=== PATIENT | female | born 1955 | race Hispanic/Latino ===

== ENCOUNTER 2025-04-30 11:45 | Inpatient (IN) | payer MEDICARE, OTHER ==
[~2025-04-30] VITALS: Ht 160 cm; Wt 72.6 kg
[~2025-04-30 11:45] MED LIST: AMPICILLIN; BACTRIM DS TAB1 EACH PO; KEFLEX125 MG/5 M PO
[2025-04-30] MEDS ORDERED: BELLADONNA ALK/PHENOBARBITAL 5 ML UDC PO STA (13:02)
[2025-04-30] MEDS ORDERED: LIDOCAINE VISC 2% SOLN 15 ML UDC PO ONE (13:15)
[2025-04-30] MEDS ORDERED: MAGNESIUM/ALUMINUM/SIMETHICONE 30 ML UDC PO ONE (13:15)
[2025-04-30 13:30] LABS: BASOPHILS % 0.7 % (0.0-1.0); EOSINOPHILS % 0.2 % (0.0-6.0); LYMPHOCYTES % 15.1 % (18.0-39.1); MONOCYTES % 5.0 % (4.4-11.3); NEUTROPHILS % 68.3 % (38.7-80.0); RED CELL DISTRIBUTION WIDTH 13.0 % (11.7-14.4)
[2025-04-30] MEDS ORDERED: SODIUM CHLORIDE 0.9% 1000ML 1,000 ML IV SCH (13:45)
[2025-04-30 13:47] LABS: EST GLOMERULAR FILTRATION RATE 93.0 ML/MIN (>=60)
[2025-04-30] MEDS: DONNATAL/LIDOCAINE/MAALOX 30 ML SUSP PO ONE (16:28)
[2025-04-30] MEDS: Morphine 4mg INJECTION 4 MG/ML INJ IV PRN (16:28)
[2025-04-30] MEDS: ONDANSETRON HCL INJ 2MG/ML 2ML 2 MG/ML VIAL IV PRN (16:29)
[2025-04-30 16:39] VITALS: PULSE 102; RESP 16; O2SAT 97
[2025-04-30] MEDS: HYDROCORTISONE SOD SUCCINATE 100 MG VIAL IV ONE (19:26)
[2025-04-30 20:28] LABS: CORONAVIRUS COVID-19 AG NEGATIVE (NEGATIVE)
[2025-04-30] MEDS: LIDOCAINE 4% PATCH TP SCH (20:29)
[2025-04-30 20:36] LABS: OPIATES SCREEN,URINE POSITIVE (NEGATIVE)
[2025-04-30 20:37] LABS: AMPHETAMINES SCREEN,URINE NEGATIVE (NEGATIVE); CANNABINOIDS SCREEN,URINE NEGATIVE (NEGATIVE); COCAINE SCREEN,URINE NEGATIVE (NEGATIVE); METHADONE SCREEN, URINE NEGATIVE (NEGATIVE)
[2025-04-30 20:51] VITALS: PULSE 95; RESP 16; O2SAT 98
[2025-04-30 20:51] LABS: OSMOLALITY,SERUM 247 mOsm/kg (278-305)
[2025-04-30 20:53] VITALS: PULSE 88; RESP 19; TEMP 98.1
[2025-04-30] MEDS ORDERED: IOPAMIDOL 370 MG/ML 100 ML INFUS..BTL INJ ONE (22:54)
[2025-04-30 23:00] VITALS: BP 154/80; PULSE 94; RESP 20; TEMP 98.5; O2SAT 96
[2025-05-01] VITALS (13 sets, daily range): BP systolic 120–158; BP diastolic 62–87; PULSE 80–98; RESP 16–20; TEMP 97.3–98.8; O2SAT 96–100
[2025-05-01] MEDS: DIPHENHYDRAMINE HCL INJ 50 MG/ML VIAL IV ONE ×4 (01:00→20:22)
[2025-05-01] MEDS: HYDROCORTISONE SOD SUCCINATE 100 MG VIAL IV ONE ×4 (01:01→20:21)
[2025-05-01] MEDS: METRONIDAZOLE 500MG/NS 100ML 100 ML IV SCH (06:02)
[2025-05-01 07:05] LABS: BASOPHILS % 1.0 % (0.0-1.0); EOSINOPHILS % 0.1 % (0.0-6.0); LYMPHOCYTES % 14.8 % (18.0-39.1); MONOCYTES % 5.0 % (4.4-11.3); NEUTROPHILS % 68.1 % (38.7-80.0); RED CELL DISTRIBUTION WIDTH 13.2 % (11.7-14.4)
[2025-05-01 09:10] LABS: EST GLOMERULAR FILTRATION RATE 94.0 ML/MIN (>=60)
[2025-05-01 12:37] LABS: EST GLOMERULAR FILTRATION RATE 96.0 ML/MIN (>=60)
[2025-05-01 12:39] LABS: LEUKOCYTE ESTERASE ,URINE TRACE (NEGATIVE); PROTEIN,URINE DIPSTICK NEGATIVE (NEGATIVE)
[2025-05-01 12:40] LABS: URINE UROBILINOGEN 1 mg/dL (0.2 - 1)
[2025-05-01 12:46] LABS: EPITHELIAL CELLS,URINE FEW /LPF
[2025-05-01] MEDS: POLYETHYLENE GLYCOL 3350 17 GM PACK PO SCH (13:06)
[2025-05-01 13:37] LABS: BAND NEUTROPHILS % (MANUAL) 19 %; LYMPHOCYTES % (MANUAL) 8 % (19-48); METAMYELOCYTES % (MANUAL) 2 % (0-0); MONOCYTES % (MANUAL) 6 % (3.4-9.0); NEUTROPHILS % (MANUAL) 65 % (40-74)
[2025-05-01 13:38] LABS: PLATELET ESTIMATE SLIGHTLY DECREASED; PLATELET MORPHOLOGY COMMENT NORMAL; RBC MORPHOLOGY COMMENT NORMAL
[2025-05-01] MEDS: SODIUM CHLORIDE 0.9% 1000ML 2,180 ML IV SCH (14:09)
[2025-05-01] MEDS: SODIUM CHLORIDE 0.9% 1000ML 1,000 ML IV ONE (15:53)
[2025-05-01 19:00] LABS: EST GLOMERULAR FILTRATION RATE 96.0 ML/MIN (>=60)
[2025-05-01] MEDS ORDERED: LIDOCAINE1 EACH TD (19:23)
[2025-05-01] MEDS ORDERED: AUGMENTIN 500-1 EACH PO (19:23)
[2025-05-01] MEDS: LACTATED RINGER'S 1,000 ML INJ SCH (20:44)
[2025-05-01] MEDS ORDERED: IOPAMIDOL 370 MG/ML 100 ML INFUS..BTL INJ ONE (21:04)
[2025-05-01] MEDS: Vancomycin IV 1 GM in SODIUM CHLORIDE 0.9% 250ML 250 ML IV ONE (22:53)
[2025-05-01] MEDS: SODIUM CHLORIDE 0.9% 250ML 250 ML ONE (22:59)
[2025-05-02] VITALS (9 sets, daily range): BP systolic 122–151; BP diastolic 52–80; PULSE 71–95; RESP 16–20; TEMP 97.3–98; O2SAT 95–99
[2025-05-02 08:13] LABS: CALCIUM IONIZED 1.2 mmol/L (1.09-1.30)
[2025-05-02 08:18] LABS: BASOPHILS % 0.3 % (0.0-1.0); EOSINOPHILS % 0.0 % (0.0-6.0); LYMPHOCYTES % 12.5 % (18.0-39.1); MONOCYTES % 4.8 % (4.4-11.3); NEUTROPHILS % 73.4 % (38.7-80.0); RED CELL DISTRIBUTION WIDTH 13.6 % (11.7-14.4)
[2025-05-02] MEDS: MAGNESIUM HYDROXIDE 30 ML UDC PO ONE (08:27)
[2025-05-02 08:28] LABS: EST GLOMERULAR FILTRATION RATE 96.0 ML/MIN (>=60); PHOSPHORUS 1.8 MG/DL (2.3-4.7)
[2025-05-02] MEDS: MAGNESIUM SULFATE 2GM/50ML 50 ML IV ONE (10:25)
[2025-05-02] MEDS: POTASSIUM PHOSPHATE 30 MM in SODIUM CHLORIDE 0.9% 250ML 250 ML IV ONE (11:54)
[2025-05-02] MEDS: SODIUM CHLORIDE 1 GM TAB PO SCH (15:14)
[2025-05-02] MEDS: SODIUM BICARBONATE 650 MG TAB PO SCH (17:27)
[2025-05-02] MEDS: SODIUM CHLORIDE 0.9% 250ML 250 ML ONE (19:21)
[2025-05-03] VITALS: BP 141/65; PULSE 88; RESP 18; TEMP 97.7; O2SAT 96
[2025-05-03 00:37] LABS: % IRON SATURATION 94 % (15-50)
[2025-05-03 04:00] VITALS: BP 140/58; PULSE 88; RESP 18; TEMP 97.5; O2SAT 95
[2025-05-03 07:14] LABS: BASOPHILS % 0.4 % (0.0-1.0); EOSINOPHILS % 0.0 % (0.0-6.0); LYMPHOCYTES % 17.5 % (18.0-39.1); MONOCYTES % 5.8 % (4.4-11.3); NEUTROPHILS % 63.6 % (38.7-80.0); RED CELL DISTRIBUTION WIDTH 14.3 % (11.7-14.4)
[2025-05-03 07:33] LABS: CALCIUM IONIZED 1.2 mmol/L (1.09-1.30)
[2025-05-03 07:38] LABS: EST GLOMERULAR FILTRATION RATE 92.0 ML/MIN (>=60); PHOSPHORUS 2.9 MG/DL (2.3-4.7)
[2025-05-03 08:16] VITALS: PULSE 92; RESP 16; O2SAT 96
[2025-05-03 09:04] VITALS: BP 143/75; PULSE 92; RESP 20; TEMP 97.4; O2SAT 96
[2025-05-03] MEDS: SOD POLYSTYRENE SULFONATE SUSP 15 GM/60 ML BTL PO ONE (11:42)
[2025-05-03] MEDS: SODIUM CHLORIDE 0.9% 1000ML 1,000 ML IV ONE (11:42)
[2025-05-03 12:26] LABS: LYMPHOCYTES % (MANUAL) 13 % (19-48); METAMYELOCYTES % (MANUAL) 1 % (0-0); MONOCYTES % (MANUAL) 12 % (3.4-9.0); NEUTROPHILS % (MANUAL) 73 % (40-74); REACTIVE LYMPHOCYTES 1
[2025-05-03 12:27] LABS: PLATELET ESTIMATE MODERATELY DECREASED; PLATELET MORPHOLOGY COMMENT NORMAL; RBC MORPHOLOGY COMMENT NORMAL
[2025-05-03 13:21] VITALS: BP 138/77; PULSE 106; RESP 20; TEMP 95.6; O2SAT 97
[2025-05-03] MEDS: SODIUM BICARBONATE 650 MG TAB PO SCH (15:32)
[2025-05-03 16:00] VITALS: BP 153/85; PULSE 97; RESP 20; TEMP 96.4; O2SAT 97
[2025-05-03] MEDS ORDERED: SODIUM CHLORIDE 0.9% 1000ML 1,000 ML IV ONE (23:30)
== END 2025-05-03 16:30 | disposition short-term general hospital (02) | DRG 871 ==
LOC: ER 12:31 → ERHOLD 15:42 → MED/SURG3 21:51
PROVIDERS: ADMIT Family Medicine Adult Medicine; ATTEND Family Medicine Adult Medicine
PROC: 3E03329 Introduction of Other Anti-infective into Peripheral Vein, Percutaneous Approach (ICD-10-PCS; 2025-04-30)
PROC: 4A043R1 Measurement of Venous Saturation, Peripheral, Percutaneous Approach (ICD-10-PCS; principal; 2025-05-03)
DX: A41.9 Sepsis, unspecified organism (principal); K65.0 Generalized (acute) peritonitis; C78.7 Secondary malignant neoplasm of liver and intrahepatic bile duct; D84.821 Immunodeficiency due to drugs; E87.1 Hypo-osmolality and hyponatremia; E87.20 Acidosis, unspecified; K80.60 Calculus of gallbladder and bile duct with cholecystitis, unspecified, without obstruction; J90 Pleural effusion, not elsewhere classified; C55 Malignant neoplasm of uterus, part unspecified; Z90.710 Acquired absence of both cervix and uterus; E87.5 Hyperkalemia; K21.9 Gastro-esophageal reflux disease without esophagitis; D64.9 Anemia, unspecified; K59.00 Constipation, unspecified; R10.13 Epigastric pain; R07.89 Other chest pain; R13.10 Dysphagia, unspecified; D13.5 Benign neoplasm of extrahepatic bile ducts; R91.1 Solitary pulmonary nodule; K57.30 Diverticulosis of large intestine without perforation or abscess without bleeding; R59.0 Localized enlarged lymph nodes; R00.0 Tachycardia, unspecified; M16.0 Bilateral primary osteoarthritis of hip; M51.369 Other intervertebral disc degeneration, lumbar region without mention of lumbar back pain or lower extremity pain; Z11.52 Encounter for screening for COVID-19; Z91.81 History of falling; Z79.60 Long term (current) use of unspecified immunomodulators and immunosuppressants; Z79.899 Other long term (current) drug therapy; Z79.2 Long term (current) use of antibiotics
CPT/HCPCS: 36415; 71045; 71260; 74177; 76705; 80048; 80053; 80307; 80329; 81001; 82607; 82746; 82947; 82977; 83036; 83540; 83605; 83690; 83735; 83935; 84100; 84295; 84300; 84466; 84484; 84520; 85025; 85045; 85379; 87040; 87086; 93005; 94799; 99284; J0692; J0696; J1200; J1720; J2270; J2405; J2470; J3373; J3475; J7030; J7050; Q9967